=== PATIENT | male | born 1975 | race Caucasian/White ===

== ENCOUNTER 2020-06-07 06:06 | Day surgery (SDC) | payer OTHER ==
[2020-06-04 15:27] VITALS: BMI 31.0
[2020-06-07] MEDS ORDERED: ROPIVACAINE HCL 0.5% 30ML VIAL ONE (06:47)
[2020-06-07] MEDS ORDERED: PROPOFOL 20 ML ONE ×4 (07:20→08:26)
[2020-06-07] MEDS ORDERED: SUCCINYLCHOLINE CHLORIDE 200 MG/10 ML SYRINGE ONE (07:20)
[2020-06-07] MEDS ORDERED: ROCURONIUM BROMIDE 50 MG/5 ML VIAL ONE (07:20)
[2020-06-07] MEDS ORDERED: ePHEDrine SULFATE 50 MG/1 ML AMPULE ONE (08:27)
[2020-06-07] MEDS ORDERED: ONDANSETRON 4 MG/2 ML VIAL IVPUSH PRN (09:14)
[2020-06-07] MEDS ORDERED: oxyCODONE HCL 5 MG TABLET PO PRN (09:14)
[2020-06-07] MEDS ORDERED: LACTATED RINGERS SOLUTION 1,000 ML IV SCH (09:15)
[2020-06-07 10:23] VITALS: TEMP 97.9
[2020-06-07 11:16] VITALS: BP 131/80; PULSE 78
== END 2020-06-07 11:16 | disposition home or self-care (01) ==
LOC: FASU 06:06
PROVIDERS: ATTEND Orthopaedic Surgery
PROC: 0RNJ4ZZ Release Right Shoulder Joint, Percutaneous Endoscopic Approach (ICD-10-PCS; principal; 2020-06-07 08:44)
PROC: 0PB94ZZ Excision of Right Clavicle, Percutaneous Endoscopic Approach (ICD-10-PCS; 2020-06-07 08:44)
DX: M75.41 Impingement syndrome of right shoulder (principal)
CPT/HCPCS: 88304-TC; 94760